=== PATIENT | female | born 1990 | race Hispanic/Latino ===

== ENCOUNTER 2020-03-31 07:32 | Day surgery (SDC) | payer OTHER ==
[2020-03-31 08:09] VITALS: BP 118/69; TEMP 98.2; BMI 30.9
== END 2020-03-31 08:56 | disposition home or self-care (01) ==
LOC: L&D/OP 07:32
PROVIDERS: ATTEND Family Medicine
DX: O47.9 False labor, unspecified (principal); Z3A.00 Weeks of gestation of pregnancy not specified; Z20.828 Contact with and (suspected) exposure to other viral communicable diseases
CPT/HCPCS: 87635; 99282; U0003

== ENCOUNTER 2020-03-31 10:44 | Outpatient (CLI) | payer OTHER ==
[2020-04-01 13:24] LABS: SARS-CoV-2 MS2 Positive; SARS-CoV-2 N Gene Negative; SARS-CoV-2 S Gene Negative; SARS-CoV-2 by NAA Not Detected (NotDetected); SARS-CoV-2 orf1ab Negative
== END 2020-03-31 10:45 | disposition home or self-care (01) ==
LOC: LABSCS 10:44
PROVIDERS: ATTEND Family Medicine
DX: Z20.828 Contact with and (suspected) exposure to other viral communicable diseases (principal)
CPT/HCPCS: 87635; U0003

== ENCOUNTER 2020-04-01 00:36 | Inpatient (IN) | payer OTHER ==
[2020-04-01 01:13] VITALS: BMI 31.1
[2020-04-01] MEDS ORDERED: hydrALAZINE 20 MG/ML VIAL SLOW IVP PRN ×3 (01:30→15:51)
[2020-04-01] MEDS ORDERED: Promethazine HCl 25 MG/ML VIAL IM PRN ×2 (01:30→09:32)
[2020-04-01] MEDS ORDERED: Morphine 4 MG/ML VIAL IM SCH (01:30)
[2020-04-01] MEDS ORDERED: Morphine 4 MG/ML VIAL SLOW IVP SCH (01:45)
[2020-04-01] MEDS ORDERED: Ondansetron PF 4 MG/2 ML Vial IVP PRN ×3 (02:30→15:51)
[2020-04-01] MEDS ORDERED: Butorphanol Tartrate 1 MG/ML VIAL SLOW IVP PRN (02:30)
[2020-04-01] MEDS ORDERED: Lidocaine 1% (PF) 30 ML VIAL SC PRN (02:30)
[2020-04-01] MEDS ORDERED: Ibuprofen 800 MG TAB PO PRN (02:30)
[2020-04-01] MEDS ORDERED: NS / Oxytocin 40 units/1000ml 1,000 ML IV PRN (02:30)
[2020-04-01 03:07] LABS: Hemoglobin 13.6 g/dL (12.0-16.0); Mean Corpuscular HGB CONC 34.1 g/dL (32.0-36.0); Mean Corpuscular Hemoglobin 30.2 pg (27.0-31.0); Mean Corpuscular Volume 88.5 fL (78.0-98.0); Mean Platelet Volume 7.8 fL (7.4-10.4); Platelet Count 297 thou/uL (130-400); RBC Distribution Width 16.5 % (11.5-14.5); Red Blood Cell (RBC) Count 4.52 mill/uL (4.20-5.40); White Blood Cell (WBC) Count 12.5 thou/uL (4.8-10.8)
[2020-04-01 03:43] LABS: HBSAg Index 0.15 S/CO (0-0.99); Hep B Surf Ag Non-Reactive S/CO (NonReactive)
[2020-04-01 04:40] LABS: Syphilis Antibody Nonreactive (Nonreactive); Syphilis Antibody Index 0.06 S/CO (<1.00 Non-Reactive)
[2020-04-01] MEDS: Lactated Ringer's 1,000 ML IV SCH ×2 (06:30→09:00)
[2020-04-01] MEDS ORDERED: NS w/ Oxytocin 10 units 500 ML ONE (07:01)
[2020-04-01] MEDS ORDERED: NS w/ Oxytocin 10 units 500 ML IVPB SCH (07:45)
[2020-04-01] MEDS ORDERED: Fentanyl 4 mcg/Bup 0.1% Cadd 100 ML ONE (08:27)
[2020-04-01] MEDS ORDERED: diphenhydrAMINE 50 MG/ML VIAL IVP PRN (09:32)
[2020-04-01] MEDS ORDERED: Lactated Ringer's 500 ML IV PRN (09:32)
[2020-04-01] MEDS ORDERED: EPHEDRINE 25 MG/5 ML SYRINGE SLOW IVP PRN (09:32)
[2020-04-01] MEDS ORDERED: Naloxone HCl 0.4 mg/ml Vial IVP PRN ×2 (09:32)
[2020-04-01] MEDS ORDERED: Acetaminophen 325 MG TAB PO PRN (09:32)
[2020-04-01] MEDS ORDERED: Communication Order-Pharmacy FS SCH (09:45)
[2020-04-01] MEDS ORDERED: Fentanyl 4 mcg/Bupivacaine 0.1% Cassette 100 ML EPIDURAL SCH (09:45)
[2020-04-01] MEDS ORDERED: Bupivacaine 0.25% HCL 30 ML VIAL ONE (10:01)
[2020-04-01] MEDS ORDERED: Preparation H Ointment 28 GM TUBE PR PRN (15:51)
[2020-04-01] MEDS ORDERED: NS / Oxytocin 40 units/1000ml 1,000 ML IV SCH (15:51)
[2020-04-01] MEDS ORDERED: Lanolin Ointment 7 GM TUBE TOP PRN (15:51)
[2020-04-01] MEDS ORDERED: Bisacodyl 10 MG SUPP PR PRN (15:51)
[2020-04-01] MEDS ORDERED: HYDROcodone/Acetaminophen 5/325 mg Tablet PO PRN ×2 (15:51)
[2020-04-01] MEDS ORDERED: Milk Of Magnesia 30 ML UDCUP PO PRN (15:51)
[2020-04-01] MEDS ORDERED: Benzocaine-Menthol 82.5 ML CAN TOP PRN (15:51)
[2020-04-01] MEDS ORDERED: diphenhydrAMINE 25 MG CAP PO PRN (15:51)
[2020-04-01] MEDS: Ferrous Sulfate 325 MG TAB PO SCH (17:15)
[2020-04-01] MEDS: Ibuprofen 800 MG TAB PO SCH (20:48)
[2020-04-01] MEDS: Docusate Calcium (SURFAK) 240 MG CAP PO SCH (20:49)
[2020-04-02] MEDS: Ibuprofen 800 MG TAB PO SCH ×2 (05:20→15:17)
[2020-04-02 06:00] LABS: Hemoglobin 11.6 g/dL (12.0-16.0); Mean Corpuscular HGB CONC 32.5 g/dL (32.0-36.0); Mean Corpuscular Hemoglobin 28.9 pg (27.0-31.0); Mean Platelet Volume 7.7 fL (7.4-10.4); Platelet Count 240 thou/uL (130-400); RBC Distribution Width 16.7 % (11.5-14.5); Red Blood Cell (RBC) Count 4.01 mill/uL (4.20-5.40); White Blood Cell (WBC) Count 14.5 thou/uL (4.8-10.8)
[2020-04-02] MEDS: Ferrous Sulfate 325 MG TAB PO SCH ×2 (08:21→18:12)
[2020-04-02] MEDS ORDERED: Adacel (T-DAP) 0.5 ML SYRINGE IM ONE (09:00)
[2020-04-02] MEDS ORDERED: Prenatal Vitamin 1 TAB PO SCH (09:00)
[2020-04-02] MEDS: Docusate Calcium (SURFAK) 240 MG CAP PO SCH (09:41)
[2020-04-02 11:51] VITALS: BP 92/55; TEMP 98.5
[2020-04-02] MEDS ORDERED: Boostrix 0.5 ML VIAL IM ONE (18:30)
== END 2020-04-02 18:51 | disposition home or self-care (01) | DRG 807 ==
LOC: L&D/OP 00:36 → L&D 02:30 → 3SE 16:01
PROVIDERS: ADMIT Obstetrics & Gynecology; ATTEND Family Medicine
PROC: 10E0XZZ Delivery of Products of Conception, External Approach (ICD-10-PCS; principal; 2020-04-01)
PROC: 10907ZC Drainage of Amniotic Fluid, Therapeutic from Products of Conception, Via Natural or Artificial Opening (ICD-10-PCS; 2020-04-01)
DX: O80 Encounter for full-term uncomplicated delivery (principal); Z37.0 Single live birth; Z3A.39 39 weeks gestation of pregnancy; O70.0 First degree perineal laceration during delivery
CPT/HCPCS: 36415; 51702; 85027; 86780; 86850; 86900; 86901; 87340; 87635; 90715; 99282; 99285; J2270; J2405; J2550; J2590; S0020; U0003

== ENCOUNTER 2020-09-16 19:08 | Emergency (ER) | payer OTHER | END 2020-09-16 21:01 | disposition left against medical advice (07) | LOC: ERS 19:08 | DX: Z53.21 Procedure and treatment not carried out due to patient leaving prior to being seen by health care provider (principal) ==